=== PATIENT | female | born 1990 | race African-American/Black ===

== ENCOUNTER 2020-01-31 12:31 | Emergency (ER) | payer MEDICAID, SELFPAY ==
[2020-01-31 12:40] VITALS: BP 128/80; PULSE 101; RESP 18; TEMP 37.3; O2SAT 100
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
== END 2020-01-31 12:58 | disposition home or self-care (01) ==
PROVIDERS: Emergency Provider Nurse Practitioner; PCP Family Medicine
DX: S01.112A Laceration without foreign body of left eyelid and periocular area, initial encounter (principal); Y04.0XXA Assault by unarmed brawl or fight, initial encounter
CPT/HCPCS: 99213; G0463

== ENCOUNTER 2020-06-24 13:20 | Emergency (ER) | payer OTHER, SELFPAY ==
[2020-06-24] VITALS (19 sets, daily range): BP systolic 112–140; BP diastolic 69–91; PULSE 79–102; RESP 15–100; TEMP 36.6–37; O2SAT 96–100
--- NOTE | ~2020-06-24 | XR_ITS ---
XR chest 2V 06/24/2020 16:08 Indication: Right-sided chest pain Procedure: 2 view chest Comparison: 02/27/2017 Findings: Heart size normal. No focal air space disease, pulmonary edema, pleural effusion or suspect ed pneumothorax. Impression: 1: No acute cardiopulmonary disease. Reviewed, dictated and finalized at location A. Impression: 1: No acute cardiopulmonary disease.
--- NOTE | 2020-06-24 14:06 | ECG_ITS ---
Measurements Intervals [place] Rate: 83 P: 58 WI: 164 QRS: 50 QRSD: 85 T: 44 QT: 311 QTc: 366 Interpretive Statements SINUS RHYTHM WITH MARKED SINUS ARRHYTHMIA CANNOT RULE OUT SEPTAL INFARCT, AGE INDETERMINATE BORDERLINE ST-T WAVE ABNORMALITY- INF/LAT LEADS BASELINE ARTIFACT- I, II, III, AVR, AVL,A VF, V1-V4 ABNORMAL ECG Electronically Signed On 06-24-2020 14:40:27 CDT by Rosendo Rubalcava D.O.
[2020-06-24 14:29] LABS: Basophils Percent Auto 0.5 % (0.2-1.2); Eosinophils Percent Auto 0.1 % (0-4.4); Hematocrit 43.8 % (37.0-47.0); Hemoglobin 14.2 g/dL (12.0-15.0); Immature Granulocyte Absolute 0.02 K/mm3 (0.00-0.031); Immature Granulocyte Percent A 0.2 % (0-0.5); Lymphocytes Absolute Auto 1.41 K/mm3 (0.9-3.2); Lymphocytes Percent Auto 16.7 % (18.3-44.2); Mean Corpuscular HGB Conc 32.4 g/dl (32-36); Mean Corpuscular Hemoglobin 29.8 pg (26-34); Mean Platelet Volume 9.5 fl (7.4-10.4); Monocytes Absolute Auto 0.3 K/mm3 (0.1-0.6); Neutrophils Absolute Auto 6.6 K/mm3 (1.3-6.7); Neutrophils Percent Auto 78.5 % (45.5-73.1); Platelet Count Result 416 k/mm3 (150-375); Red Blood Count 4.76 M/mm3 (4.2-5.4); Red Cell Distribution Width 14.1 % (11.5-14.5); White Blood Count 8.4 K/mm3 (4.5-10.0)
[2020-06-24 14:38] LABS: INR 0.9; Prothrombin Time 12.4 Seconds (11.1-14.7)
[2020-06-24 14:39] LABS: Partial Thromboplastin Time 26.5 SECONDS (22.3-36.8)
[2020-06-24 14:46] LABS: Alanine Aminotransferase 21 U/L (4-35); Albumin Level 4.9 g/dL (3.5-5.1); Alkaline Phosphatase 88 U/L (38-126); Anion Gap 16 mmol/L (8-16); Aspartate Amino Transferase 35 U/L (14-36); Bilirubin,Total 0.3 mg/dL (0.2-1.3); Blood Urea Nitrogen 10 mg/dL (7-17); Calcium 9.1 mg/dL (8.4-10.2); Carbon Dioxide 17 mmol/L (22-30); Chloride 111 mmol/L (98-107); Estimated CRCL calculation 109 ml/min; Estimated Glomerular Filt Rate > 60; Glucose 66 mg/dL (65-105); Lipase 75 U/L (23-300); Sodium 144 mmol/L (137-145)
[2020-06-24 14:57] LABS: Troponin I < 0.012 ng/mL (0.000-0.034)
--- NOTE | 2020-06-24 16:43 | ED.CHESTPAIN ---
HPI - Chest Pain General Chief Complaint: Chest Pain Stated Complaint: dizzy, vomiting Time Seen by Provider: 06/24/20 16:14 Source: patient Mode of arrival: ambulatory Limitations: no limitations History of Present Illness HPI narrative: This is a 29-year-old female that presents the emergency department for nausea and vomiting today. Associated with lightheadedness. Also reports right-sided chest pain that is dull in nature and intermittent. Reports she had several episodes of vomiting and then saw some blood in her vomit. Has had no vomiting since in the ED. Denies fever, shortness of breath, abdominal pain, or dysuria. Also reports a toothache that has been present over the last week. Reports this tooth is cracked. Denies redness or swelling around the tooth. She has not seen a dentist for this yet. Related Data Allergies Allergy/AdvReac Type Severity Reaction Status Date / Time amoxicillin Allergy Unknown Hives Verified 06/24/20 16:39 morphine Allergy Unknown Wheezing Verified 06/24/20 16:39 Review of Systems Review of Systems: Narrative: CONSTITUTIONAL: Denies fever CARDIOVASCULAR: Reports chest pain. Denies edema. RESPIRATORY: Denies dyspnea. GASTROINTESTINAL: Reports nausea and vomiting. Denies abdominal pain GENITOURINARY: Denies dysuria NEUROLOGIC: Denies numbness, or weakness. All systems reviewed & are unremarkable except as noted in HPI and below PMFSH Past Medical History Medical History (Updated 06/24/20 @ 20:19 by Avelina Ren PA-C) History of anxiety Family History Family History Grandparent Hypertension Family history of lung cancer Diabetes mellitus Mother Hypertension Sibling Hypertension Social History Social History (Updated 06/24/20 @ 16:53 by Avelina Ren PA-C) Smoking status: Never smoker Substance use: never Gender identity (if verbalized by the patient): Female Exam Narrative: Exam Narrative: GENERAL: Well-appearing, well-nourished, and in no acute distress. HEAD: Normocephalic, atraumatic. EYES: PERRLA and EOMI. ENT: Nares clear, no rhinorrhea or epistaxis. Mucous membranes moist. Oropharynx without tonsillar hypertrophy exudate or other lesions. Bilateral TMs pearly lisa non-bulging NECK: Supple. No adenopathy or masses. CHEST: Clear to auscultation. No respiratory distress. No wheezes rales or rhonchi HEART: Regular rate and rhythm. No murmur heard. Normal peripheral pulses. ABDOMEN: Soft, nontender, nondistended, normal active bowel sounds. EXTREMITIES: Normal range of motion. No edema. Strength equal in bilateral upper and lower extremities (5/5) SKIN: Warm, dry, no rash. NEURO: No focal deficits. Alert and oriented x3. Cranial nerves II through XII grossly intact. Normal [id number] PSYCH: Normal mood and affect Course Vital Signs Vital signs: Vital Signs Temperature 97.8 F 06/24/20 14:02 Pulse Rate 99 06/24/20 14:02 Respiratory Rate 100 H 06/24/20 14:02 Blood Pressure 140/77 06/24/20 14:02 Pulse Oximetry 100 06/24/20 14:02 Temperature 97.8 F 06/24/20 14:02 Pulse Rate 80 06/24/20 18:32 Respiratory Rate 17 06/24/20 18:32 Blood Pressure 121/69 06/24/20 18:32 Pulse Oximetry 100 06/24/20 18:32 MDM - Chest Pain MDM Narrative Medical decision making narrative: Patient presents emergency department after an episode of lightheadedness, nausea and vomiting today. She is afebrile and nontoxic-appearing. She is neurologically intact. Vitals are stable. CBC is without leukocytosis. Metabolic panel without concerning findings. UA without evidence of infection. Bedside test is negative. EKG with nonspecific ST changes. Baseline and 3-hour troponin are negative. Chest x-ray is without acute findings. Patient reports relief with IV fluids, Protonix and Tylenol. No further episodes of emesis while in the ED. She is stable and felt appropriate fo
[2020-06-24 17:07] LABS: Add Urine Microscopic? YES; Appearance Urine Clear (Clear); Bacteria Urine Trace /hpf; Bilirubin Urine Negative (Negative); Blood Urine 1+ (Negative); Color Urine Yellow (Yellow); Glucose Urine UA Negative (Negative); Ketones Urine 1+ mg/dL (Negative); Leukocyte Esterase Ur Negative LEU/UL (Negative); Mucus Urine Rare /lpf; Nitrate Urine Negative (Negative); Protein Urine 1+ mg/dL (Negative); RBC Urine 0-2 /hpf (0-2); Specific Grav Ur 1.023 (1.001-1.035); Squamous Epithelial Cell Urine Occasional /hpf (Few); Urobilinogen Urine Negative mg/dL (<2.0); WBC Urine 0-3 /hpf
[2020-06-24] MEDS: PANTOPRAZOLE SODIUM IV 40 MG VIAL IV PUSH (17:08)
[2020-06-24] MEDS: SODIUM CHLORIDE 0.9% IV 1,000 ML 999 ML IV CONT (17:08)
[2020-06-24] MEDS: ONDANSETRON INJ 4 MG/2 ML VIAL IV PUSH (17:08)
[2020-06-24 18:44] LABS: Troponin I < 0.012 ng/mL (0.000-0.034)
--- NOTE | 2020-06-24 19:47 | PC.NURSE ---
Pt presents to ED with complaints of left jaw pain that has been persistent over the last 2 months. Pt states she is due to have an extraction but does not have a dental appointment until the of this month. Pt states jaw pain has caused a larry effect of other issues. Pt states she has been taking 800mg of ibuprofen 3x a daily and has now been nauseous and having bloody emesis. Pt also complaining of intermittent chest pain that has been persistent and onsets with jaw pain. Pt rates current jaw pain 7/10 at this time. Pt alert and oriented x4, breathing even and unlabored with O2 saturation of 100% on room air. Pt in no obvious distress. Call button and personal items within reach. Pt advise to press call button for assistance.
--- NOTE | 2020-06-24 19:53 | PC.NURSE ---
EDPA notified of pt pain and states she will place orders. Pt ambulated in [place] to restroom with steady gait and is now back in room resting on cart in its lowest position with call button and personal items within reach. Pt advised to press call button for assistance.
[2020-06-24] MEDS: HYDROcodone/acetaminophen (*CRX) 5-325 MG TABLET 1 TAB PO (20:06)
--- NOTE | 2020-06-24 20:15 | PC.NURSE ---
Pt provided ice water per request.
== END 2020-06-24 20:57 | disposition home or self-care (01) ==
PROVIDERS: Emergency Medicine; Emergency Provider Emergency Medicine; PCP Family Medicine
DX: R11.2 Nausea with vomiting, unspecified (principal); K04.7 Periapical abscess without sinus; R94.31 Abnormal electrocardiogram [ECG] [EKG]
CPT/HCPCS: 36415; 71046; 80053; 81001; 81025; 83690; 84484; 85025; 85610; 85730; 93005; 96361; 96365; 96375; 99284; A9270; C9113; J0131; J2405; J7030